=== PATIENT | female | born 1955 | race African-American/Black ===

== ENCOUNTER → 2017-02-17 | Outpatient (CLI) | payer OTHER ==
[2016-06-13 19:28] VITALS: BP 190/91
[~2017-02-17] MED LIST: ALLO300T PO; ASPI-482 PO; ATOR40TA59 PO; BIMA2.5D EACHEYE; BISA-42 PO; COLC0.6T34 PO; CYCL10TA2 PO; FLECTOR1 EACH TD; GABA-586 PO; GABA400C PO; HYDR30CR70 RC; INSU100C4 SQ; INSU100I17 SQ; INSU100I17 SUBCUT; INSU100V13 SQ; LEVO500T59 PO; LEVO50TA PO; LIDO5JEL3 MM; LISI10TA2 PO; METO200T3 PO; METO5TAB55 PO; MOVANTIK25 MG PO; NITR0.4T22 SL; ONDA8TAB9 PO; OXYC-328 PO; OXYC10TA45 PO; PANT40TA3 PO; PANT40TA5 PO; POLY17PO29 PO; PRED50TA PO; RIVA20TA2 PO; SENN-22 PO; SITA100T PO
--- NOTE | 2017-02-17 10:36 | RAD ---
Abdominal ultrasound 02/17/2017 at 0707 hours Indication: Right upper quadrant abdominal pain. Comparison: Renal ultrasound 07/20/2013, CT abdomen and pelvis 02/23/2013 Technique: Sonographic evaluation of the abdomen was performed utilizing grayscale and color Doppler. Findings: Liver is homogenous in echotexture without evidence for a focal mass. Gallbladder is surgically absent. There is no free fluid within the right upper quadrant. There is no intrahepatic or extrahepatic biliary ductal dilatation. The common bile duct measures 5 mm. Visualized portions of the pancreas are normal. There is no pancreatic ductal dilatation. Proximal aorta measures 1.9 cm. Mid and distal aorta are obscured by overlying structures. IVC is patent. The right kidney measures 10.8 x 4.3 x 5.5 cm. There is a 12 mm simple cyst in the inferior pole of the right kidney. There is no suspicious renal mass, renal calculi or hydronephrosis. The left kidney measures 10.8 x 4.2 x 6.5 cm. There is no suspicious renal mass, renal calculi or hydronephrosis. Spleen is normal in size measuring 9.9 cm. No abdominal free fluid is identified. Impression: 1. Status post cholecystectomy without evidence for intrahepatic or extrahepatic biliary ductal dilatation. Specifically, common bile duct is normal in size. 2. Simple appearing cyst in the inferior pole of the right kidney measuring 12 mm.
== END | disposition home or self-care (01) ==
LOC: US 07:05
PROVIDERS: ATTEND Internal Medicine
DX: R10.11 Right upper quadrant pain (principal)
CPT/HCPCS: 76700

== ENCOUNTER 2017-11-08 17:44 | Emergency (ER) | payer OTHER ==
[2017-11-08 18:16] LABS: BILIRUBIN,URINE NEGATIVE (NEG); COLOR,URINE YELLOW; GLUCOSE,URINE NEGATIVE (NEG); NITRITE,URINE NEGATIVE (NEG); PH,URINE 7.5; PROTEIN,URINE NEGATIVE (NEG-TRACE); UROBILINOGEN,URINE 0.2 mg/dL (0.2 mg/dL)
[2017-11-08 18:25] LABS: CLARITY,URINE HAZY
[2017-11-08 18:27] LABS: BACTERIA,URINE FEW /HPF (0-FEW); RBC,URINE 0 /HPF (0-2); SQUAMOUS EPITHELIAL CELL,UR FEW /LPF; WBC,URINE 0 /HPF (0-4)
[2017-11-08 18:57] LABS: ADD MAN DIFF? NO
[2017-11-08 18:59] LABS: BASO # 0.1 x10^3/uL (0.0-0.2); BASO % 1 % (0-3); EOS # 0.4 x10^3/uL (0.0-0.7); EOS % 4 % (0-3); HEMATOCRIT 35.2 % (36.0-47.0); HEMOGLOBIN 10.9 g/dL (12.0-15.5); LYMPH % 32 % (24-48); MEAN CORPUSCULAR HEMOGLOBIN 26 pg (25-35); MEAN CORPUSCULAR HGB CONC 31 g/dL (31-37); MEAN CORPUSCULAR VOLUME 84 fL (79-100); MONO # 0.9 x10^3/uL (0.0-1.1); MONO % 9 % (0-9); NEUT # 5.1 x10^3uL (1.8-7.7); NEUT % 54 % (31-73); PLATELET COUNT 332 x10^3/uL (140-400); RED BLOOD COUNT 4.22 x10^6/uL (3.50-5.40); RED CELL DISTRIBUTION WIDTH 18.7 % (11.5-14.5); WHITE BLOOD COUNT 9.4 x10^3/uL (4.0-11.0)
[2017-11-08 19:13] LABS: ANION GAP 7 (6-14); BLOOD UREA NITROGEN 15 mg/dL (7-20); BUN/CREATININE RATIO 12 (6-20); CALCIUM 9.1 mg/dL (8.5-10.1); CARBON DIOXIDE 31 mmol/L (21-32); CHLORIDE 106 mmol/L (98-107); CREATININE 1.3 mg/dL (0.6-1.0); GFR 50.4; GLUCOSE 111 mg/dL (70-99); POTASSIUM 4.5 mmol/L (3.5-5.1); SODIUM 144 mmol/L (136-145)
[2017-11-08 19:19] LABS: ALBUMIN 3.1 g/dL (3.4-5.0); ALBUMIN/GLOBULIN RATIO 0.7 (1.0-1.7); ALK PHOS 175 U/L (46-116); ALT (SGPT) 20 U/L (14-59); AST (SGOT) 13 U/L (15-37); TOTAL BILIRUBIN 0.3 mg/dL (0.2-1.0); TOTAL PROTEIN 7.3 g/dL (6.4-8.2)
[2017-11-08 19:23] LABS: NT-PRO BNP 184 pg/mL (0-124)
[2017-11-08] MEDS: HYDROcodone/APAP 5/325MG 1 TAB TABLET PO (19:44)
== END 2017-11-08 21:19 | disposition home or self-care (01) ==
LOC: ER 17:44
DX: R60.0 Localized edema (principal); E11.40 Type 2 diabetes mellitus with diabetic neuropathy, unspecified; E78.00 Pure hypercholesterolemia, unspecified; I10 Essential (primary) hypertension; I25.2 Old myocardial infarction; Z86.718 Personal history of other venous thrombosis and embolism; Z90.49 Acquired absence of other specified parts of digestive tract
CPT/HCPCS: 36415; 80053; 81001; 83880; 85025; 93970; 99285-25

== ENCOUNTER 2018-04-26 08:36 | Emergency (ER) | payer OTHER ==
[~2018-04-26] VITALS: Ht 157.5 cm; Wt 104.3 kg
[~2018-04-26 08:36] MED LIST changes: +FURO-69 PO; -METO200T3 PO; +METO200T46 PO
[2018-04-26] MEDS ORDERED: ONDANSETRON PF 4 MG/2 ML VIAL. IV ONE (09:30)
[2018-04-26] MEDS ORDERED: MORPHINE SULFATE 10 MG/ML VIAL. IV ONE (09:30)
[2018-04-26] MEDS ORDERED: PANTOPRAZOLE IV PUSH 40 MG VIAL. IVP ONE (09:30)
[2018-04-26] MEDS ORDERED: IV NORMAL SALINE 1000ML BAG 1,000 ML IV ONE (09:30)
[2018-04-26] MEDS ORDERED: DICYCLOMINE HCL 10 MG CAPSULE PO ONE (09:30)
--- NOTE | 2018-04-26 09:32 | PHYS DOC ---
Past Medical History Past Medical History: Diabetes-Type II, DVT, High Cholesterol, Hypertension, MT , Other Additional Past Medical Histor: HEMORROIDS Past Surgical History: Cholecystectomy, , Other Additional Past Surgical Histo: Thyroid Alcohol Use: None Drug Use: None Adult General Chief Complaint Chief Complaint: RECTAL BLEED HPI HPI Patient is a 62 year old female with history of hypertension, diabetes type 2, high cholesterol, who presents today complaining of 10 out of 10 constant sharp , right lower quadrant abdominal pain with diarrhea that began one week ago and bloody stools that began last night. Patient denies any nausea vomiting. She states she has a history of cholecystectomy and appendectomy. She states she's been taking tramadol with no relief to her symptoms. Patient states she has hx of DVTs and is on Xarelto. Review of Systems Review of Systems Constitutional: Denies fever or chills [] Eyes: Denies change in visual acuity, redness, or eye pain [] HENT: Denies nasal congestion or sore throat [] Respiratory: Denies cough or shortness of breath [] Cardiovascular: No additional information not addressed in HPI [] GI: Reports right lower quadrant abdominal pain, diarrhea, bloody stools, denies nausea vomiting : Denies dysuria or hematuria [] Musculoskeletal: Denies back pain or joint pain [] Integument: Denies rash or skin lesions [] Neurologic: Denies headache, focal weakness or sensory changes [] All other systems were reviewed and found to be within normal limits, except as documented in this note. Current Medications Current Medications Current Medications Medications (Trade) Dose Ordered Sig/Chad Start Time Stop Time Status Last Admin Dose Admin Dicyclomine HCl (Bentyl) 20 mg 1X ONCE 04/26/18 09:30 04/26/18 09:31 DC 04/26/18 09:43 20 MG Info (CONTRAST GIVEN -- Rx MONITORING) 1 each PRN DAILY PRN 04/26/18 10:45 04/28/18 10:44 Iohexol (Omnipaque 240 Mg/ml) 50 ml 1X ONCE 04/26/18 10:45 04/26/18 10:46 DC 04/26/18 10:45 50 ML Iohexol (Omnipaque 300 Mg/ml) 50 ml 1X ONCE 04/26/18 10:45 04/26/18 10:46 DC 04/26/18 10:45 50 ML Magnesium Citrate (Citroma) 296 ml 1X ONCE 04/26/18 13:30 04/26/18 13:39 DC 04/26/18 13:45 296 ML Morphine Sulfate (Morphine Sulfate) 5 mg 1X ONCE 04/26/18 09:30 04/26/18 09:31 DC 04/26/18 09:43 5 MG Ondansetron HCl (Zofran) 4 mg 1X ONCE 04/26/18 09:30 04/26/18 09:31 DC 04/26/18 09:43 4 MG Pantoprazole Sodium (PROTONIX VIAL for IV PUSH) 40 mg 1X ONCE 04/26/18 09:30 04/26/18 09:31 DC 04/26/18 09:43 40 MG Sodium Chloride 1,000 ml @ 1,000 mls/hr 1X ONCE 04/26/18 09:30 04/26/18 10:29 DC 04/26/18 09:43 1,000 MLS/HR Allergies Allergies Allergies Coded Allergies Type Severity Reaction Last Updated Verified No Known Drug Allergies 12/25/13 No Physical Exam Physical Exam Constitutional: Well developed, well nourished, no acute distress, non-toxic appearance. [] HENT: Normocephalic, atraumatic, bilateral external ears normal, oropharynx moist, no oral exudates, nose normal. [] Eyes: PERRLA, EOMI, conjunctiva normal, no discharge. [] Neck: Normal range of motion, no tenderness, supple, no stridor. [] Cardiovascular:Heart rate regular rhythm, no murmur [] Lungs & Thorax: Bilateral breath sounds clear to auscultation [] Abdomen: Rounded abdomen. Old healed surgical incision noted midline abdomen. Bowel sounds normal, soft, no tenderness, no masses, no pulsatile masses. Rectal exam-external rectum appears normal, palpable hard stool felt on the lower end of the internal rectal area. No active bleeding. No internal hemorrhoids. Skin: Warm, dry, no erythema, no rash. [] Back: No tenderness, no CVA tenderness. [] Extremities: No tenderness, no cyanosis, no clubbing, ROM intact, no edema. [] Neurologic: Alert and oriented X 3, normal motor function, normal sensory function, no focal deficits noted. [] Psychologic: Affect normal, judgement normal, mood normal. [] Current Patient Data Vital Signs Vital Signs Date Time Temp Pulse Resp B/P (MAP) Pulse Ox O2 Delivery O2 Flow Rate FiO2 04/26/18 11:51 181/91 (121) Nasal Cannula 2.0 04/26/18 11:36 62 92 04/26/18 10:13 18 04/26/18 09:02 98.2 98.2 Lab Values Laboratory Tests Test 04/26/18 09:10 04/26/18 09:28 04/26/18 10:00 04/26/18 12:13 Stool Occult Blood Positive (NEG) White Blood Count 10.0 x10^3/uL (4.0-11.0) Red Blood Count 4.45 x10^6/uL (3.50-5.40) Hemoglobin 11.5 g/dL (12.0-15.5) L Hematocrit 36.6 % (36.0-47.0) Mean Corpuscular Volume 82 fL (79-100) Mean Corpuscular Hemoglobin 26 pg (25-35) Mean Corpuscular Hemoglobin Concent 32 g/dL (31-37) Red Cell Distribution Width 17.9 % (11.5-14.5) H Platelet Count 354 x10^3/uL (140-400) Neutrophils (%) (Auto) 74 % (31-73) H Lymphocytes (%) (Auto) 16 % (24-48) L Monocytes (%) (Auto) 7 % (0-9) Eosinophils (%) (Auto) 3 % (0-3) Basophils (%) (Auto) 1 % (0-3) Neutrophils # (Auto) 7.4 x10^3uL (1.8-7.7) Lymphocytes # (Auto) 1.6 x10^3/uL (1.0-4.8) Monocytes # (Auto) 0.7 x10^3/uL (0.0-1.1) Eosinophils # (Auto) 0.3 x10^3/uL (0.0-0.7) Basophils # (Auto) 0.0 x10^3/uL (0.0-0.2) Prothrombin Time 19.3 SEC (11.7-14.0) H Prothrombin Time INR 1.7 (0.8-1.1) H PTT 32 SEC (24-38) Sodium Level 142 mmol/L (136-145) Potassium Level 4.3 mmol/L (3.5-5.1) Chloride Level 105 mmol/L (98-107) Carbon Dioxide Level 28 mmol/L (21-32) Anion Gap 9 (6-14) Blood Urea Nitrogen 20 mg/dL (7-20) Creatinine 1.5 mg/dL (0.6-1.0) H Estimated GFR (Cockcroft-Gault) 42.7 BUN/Creatinine Ratio 13 (6-20) Glucose Level 122 mg/dL (70-99) H Calcium Level 8.8 mg/dL (8.5-10.1) Total Bilirubin 0.4 mg/dL (0.2-1.0) Aspartate Amino Transferase (AST) 18 U/L (15-37) Alanine Aminotransferase (ALT) 18 U/L (14-59) Alkaline Phosphatase 140 U/L (46-116) H Total Protein 7.9 g/dL (6.4-8.2) Albumin 3.2 g/dL (3.4-5.0) L Albumin/Globulin Ratio 0.7 (1.0-1.7) L Lipase 148 U/L (73-393) Urine Collection Type Unknown Urine Color Yellow Urine Clarity Clear Urine pH 6.0 Urine Specific [place] 1.020 Urine Protein Negative mg/dL (NEG-TRACE) Urine Glucose (UA) Negative mg/dL (NEG) Urine Ketones (Stick) Negative mg/dL (NEG) Urine Blood Negative (NEG) Urine Nitrite Negative (NEG) Urine Bilirubin Negative (NEG) Urine Urobilinogen Dipstick 1.0 mg/dL (0.2 mg/dL) Urine Leukocyte Esterase Negative (NEG) Urine RBC Occ /HPF (0-2) Urine WBC Occ /HPF (0-4) Urine Squamous Epithelial Cells Mod /LPF Urine Bacteria Few /HPF (0-FEW) Urine Hyaline Casts Occasional /HPF Urine Mucus Slight /LPF Laboratory Tests 04/26/18 09:28 Laboratory Tests 04/26/18 10:00 EKG EKG [] Radiology/Procedures Radiology/Procedures []PROCEDURE: CT ABD PELV W/ORAL&IV CONTRAST PQRS Compliance Statement: One or more of the following individualized dose reduction techniques were utilized for this examination: 1. Automated exposure control 2. Adjustment of the mA and/or kV according to patient size 3. Use of iterative reconstruction technique CT ABD PELV W/ORAL IV CONTRAST Clinical Indication: rectal bleeding Comparison: CT abdomen and pelvis without contrast February 23, 2013. Technique: Helical CT imaging of the abdomen and pelvis is performed after 50 cc of Omnipaque 300 IV contrast. Oral contrast also given. Findings: Stable bullae in the right lower lobe. Atelectasis or scarring in the right lung base. Cardiac size upper limits of normal. Calcified left hilar lymph node. Gallbladder not seen, probable cholecystectomy. The liver, spleen, adrenal glands, and abdominal aorta caliber are normal. There is infrarenal IVC filter. Small hypodensity in the pancreas body is stable, image 30. There is no peripancreatic inflammation. There is a 1.5 cm hypodensity in the upper pole of the left kidney, attenuation is greater than that of a simple cyst. There is no hydronephrosis. There are subcentimeter retroperitoneal lymph nodes. Stomach unremarkable. There is no dilated small bowel. There is moderate distention of the rectum with stool. Descending and sigmoid colon diverticulosis. Colon wall thickening is not appreciated. Appendix is not identified, no secondary signs of appendicitis. Urinary bladder is normal. Hysterectomy. No pelvic free fluid. There is probably reactive endplate sclerosis of T10/T11 and L3/L4. Disc space narrowing and vacuum disc phenomenon of L2/L3, L3/L4, and L5/S1. IMPRESSION: 1. Moderate distention of the rectum with stool. No evidence of colitis. Cannot exclude fecal impaction. 2. Moderate distal colon diverticulosis without diverticulitis. 3. Small hypodensity in the upper pole of the left kidney is indeterminate. Recommend outpatient renal ultrasound. Electronically signed by: John Summers MD (04/26/2018 12:24 PM) [id number] DICTATED and SIGNED BY: JOHN SUMMERS MD DATE: 04/26/18 1209 Course & Med Decision Making Course & Med Decision Making Pertinent Labs and Imaging studies reviewed. (See chart for details) This is a 62-year-old female patient presenting to the ED today complaining of right lower quadrant abdominal pain with diarrhea for one week and bloody stools since yesterday. CBC with normal WBC, hemoglobin 11.5, hematocrit 36.6, CMP with creatinine of 1.5, normal BUN, alkaline phosphate 140. CT of the abdomen and pelvic was noted for moderate distention of right thumb with stool, no evidence of colitis fecal impaction could not be excluded. This is actually the cause of this patient. During rectal exam she had a lot of stool in the rectal area. She actually had a bowel movement on her own in the ED. CT also noted for diverticulosis, no diverticulitis. CT also noted for a density in the left kidney with recommendation for follow-up ultrasound as an outpatient. Patient has a PCP. Instructed to follow-up as an outpatient. I did attempt to contact patient's PCP, he has not returned our call. Patient will be discharged to home. Instructed to return to the ED at any point symptoms worsen. 14:[address] Mcmillan he was okay with patient going home and f/u with him in the clinic [facility] Disclaimer Dragon Disclaimer This electronic medical record was generated, in whole or in part, using a voice recognition dictation system. Departure Departure Impression: Primary Impression: Constipation Additional Impression: Rectal bleeding Disposition: HOME, SELF-CARE Condition: STABLE Referrals: CARLOS MCMILLAN MD (PCP) Follow-up in 2 days Patient Instructions: Constipation, Adult, Rectal Bleeding Additional Instructions: You were evaluated in the emergency room and noted to be constipated. We highly recommend you use MiraLAX every day. Increase your dietary fiber intake and try to exercise more. You were also noted to have a lesion on your left kidney, follow-up with your primary care doctor as an outpatient for an ultrasound to figure out what kind of lesion this is. Take Tylenol as needed for pain. Come back to the ED at any point symptoms worsen. Problem Qualifiers Primary Impression: Constipation Constipation type: unspecified constipation type Qualified Codes: K59.00 - Constipation, unspecified MILLIE MONCADA LINK CUTTER Apr 26, 2018 09:32
[2018-04-26 09:41] LABS: BASO % 1 % (0-3); EOS # 0.3 x10^3/uL (0.0-0.7); EOS % 3 % (0-3); HEMATOCRIT 36.6 % (36.0-47.0); HEMOGLOBIN 11.5 g/dL (12.0-15.5); LYMPH # 1.6 x10^3/uL (1.0-4.8); LYMPH % 16 % (24-48); MEAN CORPUSCULAR HEMOGLOBIN 26 pg (25-35); MEAN CORPUSCULAR HGB CONC 32 g/dL (31-37); MEAN CORPUSCULAR VOLUME 82 fL (79-100); MONO # 0.7 x10^3/uL (0.0-1.1); MONO % 7 % (0-9); NEUT # 7.4 x10^3uL (1.8-7.7); NEUT % 74 % (31-73); PLATELET COUNT 354 x10^3/uL (140-400); RED BLOOD COUNT 4.45 x10^6/uL (3.50-5.40); RED CELL DISTRIBUTION WIDTH 17.9 % (11.5-14.5)
[2018-04-26 10:12] LABS: FECAL OB PT POSITIVE (NEG)
[2018-04-26 10:27] LABS: CALCIUM 8.8 mg/dL (8.5-10.1); CREATININE 1.5 mg/dL (0.6-1.0)
[2018-04-26 10:28] LABS: GFR 42.7; POTASSIUM 4.3 mmol/L (3.5-5.1)
[2018-04-26 10:32] LABS: ALBUMIN 3.2 g/dL (3.4-5.0); ALBUMIN/GLOBULIN RATIO 0.7 (1.0-1.7); TOTAL BILIRUBIN 0.4 mg/dL (0.2-1.0); TOTAL PROTEIN 7.9 g/dL (6.4-8.2)
[2018-04-26 10:33] LABS: PROTHROMBIN TIME PATIENT 19.3 SEC (11.7-14.0)
[2018-04-26] MEDS ORDERED: CONTRAST GIVEN. MC PRN (10:45)
[2018-04-26] MEDS ORDERED: IOHEXOL 240 MG/ML 50ML VIAL. PO ONE (10:45)
[2018-04-26] MEDS ORDERED: IOHEXOL 300 MG/ML 100ML VIAL. IV ONE (10:45)
--- NOTE | 2018-04-26 12:27 | RAD ---
PQRS Compliance Statement: One or more of the following individualized dose reduction techniques were utilized for this examination: 1. Automated exposure control 2. Adjustment of the mA and/or kV according to patient size 3. Use of iterative reconstruction technique CT ABD PELV W/ORAL IV CONTRAST Clinical Indication: rectal bleeding Comparison: CT abdomen and pelvis without contrast February 23, 2013. Technique: Helical CT imaging of the abdomen and pelvis is performed after 50 cc of Omnipaque 300 IV contrast. Oral contrast also given. Findings: Stable bullae in the right lower lobe. Atelectasis or scarring in the right lung base. Cardiac size upper limits of normal. Calcified left hilar lymph node. Gallbladder not seen, probable cholecystectomy. The liver, spleen, adrenal glands, and abdominal aorta caliber are normal. There is infrarenal IVC filter. Small hypodensity in the pancreas body is stable, image 30. There is no peripancreatic inflammation. There is a 1.5 cm hypodensity in the upper pole of the left kidney, attenuation is greater than that of a simple cyst. There is no hydronephrosis. There are subcentimeter retroperitoneal lymph nodes. Stomach unremarkable. There is no dilated small bowel. There is moderate distention of the rectum with stool. Descending and sigmoid colon diverticulosis. Colon wall thickening is not appreciated. Appendix is not identified, no secondary signs of appendicitis. Urinary bladder is normal. Hysterectomy. No pelvic free fluid. There is probably reactive endplate sclerosis of T10/T11 and L3/L4. Disc space narrowing and vacuum disc phenomenon of L2/L3, L3/L4, and L5/S1. IMPRESSION: 1. Moderate distention of the rectum with stool. No evidence of colitis. Cannot exclude fecal impaction. 2. Moderate distal colon diverticulosis without diverticulitis. 3. Small hypodensity in the upper pole of the left kidney is indeterminate. Recommend outpatient renal ultrasound. Electronically signed by: John Summers MD (04/26/2018 12:24 PM) [id number]
[2018-04-26 12:36] LABS: BILIRUBIN,URINE NEGATIVE (NEG); CLARITY,URINE CLEAR; COLOR,URINE YELLOW; NITRITE,URINE NEGATIVE (NEG); PROTEIN,URINE NEGATIVE (NEG-TRACE)
[2018-04-26 12:52] LABS: SQUAMOUS EPITHELIAL CELL,UR MOD /LPF
[2018-04-26 12:53] LABS: HYALINE CASTS, URINE OCCASIONAL /HPF
[2018-04-26 12:54] LABS: BACTERIA,URINE FEW /HPF (0-FEW); RBC,URINE OCC /HPF (0-2); WBC,URINE OCC /HPF (0-4)
[2018-04-26] MEDS ORDERED: MAGNESIUM CITRATE 296 ML SOLUTION. PO ONE (13:30)
[2018-04-26 16:10] VITALS: BP 148/75
== END 2018-04-26 16:30 | disposition home or self-care (01) ==
LOC: ER 08:36
DX: K62.5 Hemorrhage of anus and rectum (principal); K59.00 Constipation, unspecified; R19.7 Diarrhea, unspecified; E11.9 Type 2 diabetes mellitus without complications; E78.00 Pure hypercholesterolemia, unspecified; I10 Essential (primary) hypertension; I25.2 Old myocardial infarction; Z86.718 Personal history of other venous thrombosis and embolism; Z90.49 Acquired absence of other specified parts of digestive tract
CPT/HCPCS: 36415; 74177; 80053; 81001; 82274; 83690; 85025; 85610; 85730; 96361; 96374; 96375; 99285; C9113; J2270; J2405; J7030; Q9966; Q9967; 96360

== ENCOUNTER → 2020-02-19 | Outpatient (CLI) | payer OTHER ==
[2019-02-16 10:50] VITALS: BP 132/63
[~2020-02-19] MED LIST changes: -GABA-586 PO; +GABA-689 PO; +GABA300C18 PO; -GABA400C PO; -OXYC-328 PO; -OXYC10TA45 PO; +OXYC10TA46 PO; +OXYC1TAB22 PO; -PANT40TA3 PO; -PANT40TA5 PO; +PANT40TA77 PO
--- NOTE | 2020-02-19 13:10 | RAD ---
Examination: CT HEAD WO CONTRAST History: HEAD INJURY, pain, S/P FALL ABOUT A WEEK AGO. R/O BRAIN BLEED. / Spl. Instructions: / History: Comparison/Correlation: 06/05/2013 CT head and cervical spine without contrast Findings: Axial images of the head were obtained without contrast. Diffusely low attenuation in the bifrontal deep white matter is noted. Gyral effacement bilaterally present are present upon comparison with the previous exam. Slightly high density along the intersegmental fissure anteriorly is noted compared to prior exam. Mass effect is compression of the anterior aspect of the frontal lobes about the intersegmental fissure on axial images 9 through 12. Bilateral cavernous carotid calcification is seen. Defect involving the medial wall of the maxillary sinuses bilaterally is seen. Correlate with surgical history. No depressed fracture. Impression: Bifrontal deep white matter low attenuation is new in the interval. Mass effect in the anterior frontal lobes about the intersegmental fissure in the interval. Findings are concerning for underlying neoplastic process. Further evaluation with MRI of the brain without and with contrast is recommended. High density along the intersegmental fissure anteriorly is noted and probably artifactual. Correlate with hydration status. This also may be further evaluated on MRI exam. Referring physician's office was informed on 02/19/2020 at 1:06 PM. Electronically signed by: Jonatan Sanabria MD (02/19/2020 1:07 PM) [id number]
== END | disposition home or self-care (01) ==
LOC: CT 11:54
PROVIDERS: ATTEND Internal Medicine
DX: S09.8XXA Other specified injuries of head, initial encounter (principal); W19.XXXA Unspecified fall, initial encounter; Y93.89 Activity, other specified; Y92.89 Other specified places as the place of occurrence of the external cause; Y99.8 Other external cause status; Z71.89 Other specified counseling
CPT/HCPCS: 70450

== ENCOUNTER → 2020-03-01 | Outpatient (CLI) | payer OTHER ==
[2019-02-16 10:50] VITALS: BP 132/63
[~2020-03-01] MED LIST changes: +GADOTERATE 7.5 MMOL/15ML VIAL. IVP ONE
--- NOTE | 2020-03-01 14:21 | RAD ---
BRAIN WO/W CONTRAST Date: 03/01/2020 10:30 AM Indication: UNSTEADY GAIT, HEADACHES, HIT LEFT FRONTAL PART OF HEAD IN RECENT FALL Comparison: CT 02/19/2020. Technique: Multiplanar multisequence MRI of the brain was performed with and without intravenous contrast using the standard protocol. 20 cc Dotarem contrast was administered intravenously during the exam. Findings: Solid enhancing extra-axial mass along the floor of the anterior cranial fossa at the midline measuring 3.9 x 3.9 x 3.1 cm (AP by TV by CC). Mass encases the anterior falx and extends into the olfactory grooves. Anterior cerebral arteries course along the posterior aspect of the mass. Mass effect on overlying frontal lobes with significant frontal lobe edema extending into the corpus callosum anteriorly as well as the basal ganglia. No acute infarct. No acute or chronic hemorrhage. The ventricles are normal in size and configuration without hydrocephalus. Moderate scattered FLAIR hyperintensities in the subcortical and periventricular deep white matter, a nonspecific finding, most commonly seen with chronic small vessel ischemic disease. Mild generalized cerebral volume loss. The scalp and calvarium are normal. The pituitary and sella are normal. No Chiari malformation. Mild incompletely characterized degenerative spondylosis of the visualized upper cervical spine. The visualized orbits and globes are normal. The visualized paranasal sinuses are clear. The mastoid air cells are clear. Normal flow voids within the vertebral, basilar, and internal carotid arteries indicating patency. 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 Electronically signed by: Gallo Lindsay MD (03/01/2020 2:18 PM) [id number]
== END | disposition home or self-care (01) ==
LOC: MRI 09:52
PROVIDERS: ATTEND Family Medicine
DX: G93.6 Cerebral edema (principal); G93.89 Other specified disorders of brain; M47.812 Spondylosis without myelopathy or radiculopathy, cervical region; D32.9 Benign neoplasm of meninges, unspecified
CPT/HCPCS: 70553; A9575